=== PATIENT | male | born 1960 | race Caucasian/White ===

== ENCOUNTER 2019-12-12 11:55 | Outpatient (CLI) | payer OTHER ==
[2019-12-12 18:12] LABS: BILIRUBIN,URINE NEGATIVE (NEGATIVE); GLUCOSE, URINE (UA) NEGATIVE (NEGATIVE); KETONES,URINE (UA) NEGATIVE (NEGATIVE); LEUKOCYTE ESTERASE, URINE NEGATIVE (NEGATIVE); NITRITE,URINE NEGATIVE (NEGATIVE); OCCULT BLOOD,URINE NEGATIVE (NEGATIVE); PH,URINE 5.5 PH (5.0-7.5); PROTEIN,URINE NEGATIVE (NEGATIVE); UROBILINOGEN,URINE 0.2 (NORMAL) E.U./dL (NORMAL)
[2019-12-12 18:14] LABS: BASOPHILS # (AUTO) 0.1 10^3/uL (0.0-0.1); BASOPHILS % (AUTO) 1.1 %; EOSINOPHILS # (AUTO) 0.1 10^3/uL (0.0-0.7); EOSINOPHILS % (AUTO) 2.2 %; HGB - HEMOGLOBIN 14.8 g/dL (14.0-18.0); LYMPHOCYTES # (AUTO) 1.8 10^3/uL (1.5-3.5); LYMPHOCYTES % (AUTO) 32.1 %; MEAN CORPUSCULAR HEMOGLOBIN 30.5 pg (27.0-31.0); MEAN CORPUSCULAR HGB CONC 32.2 g/dL (32.0-36.0); MEAN CORPUSCULAR VOLUME 94.8 fL (80.0-94.0); MONOCYTES # (AUTO) 0.4 10^3/uL (0.0-1.0); MONOCYTES % (AUTO) 7.4 %; NEUTROPHILS # (AUTO) 3.2 10^3/uL (1.5-6.6); NEUTROPHILS % (AUTO) 56.7 %; PLT - PLATELET COUNT 209 10^3/uL (130-450); RED BLOOD COUNT 4.85 10^6/uL (4.70-6.10); RED CELL DISTRIBUTION WIDTH 13.2 % (12.0-15.0); WHITE BLOOD COUNT 5.6 x10^3/uL (4.8-10.8)
[2019-12-12 18:21] LABS: ALBUMIN 4.1 g/dL (3.2-5.5); ALBUMIN/GLOBULIN RATIO 1.4 (1.0-2.2); ALKALINE PHOSPHATASE 51 IU/L (42-121); ALT ALANINE AMINOTRANSFERASE 17 IU/L (10-60); AST ASPARTATE AMINOTRANSFERASE 17 IU/L (10-42); BUN - BLOOD UREA NITROGEN 16 mg/dL (6-20); CALCIUM 9.1 mg/dL (8.5-10.3); CARBON DIOXIDE - CO2 28 mmol/L (21-32); CHLORIDE 101 mmol/L (101-111); CHOLESTEROL 284 mg/dL; CREATININE 0.9 mg/dL (0.6-1.2); GLUCOSE 90 mg/dL (70-100); HDL CHOLESTEROL 71 mg/dL; LDL CHOLESTEROL,CALCULATED 187 mg/dL; LDL/HDL RATIO 2.6 (<3.6); SODIUM 138 mmol/L (135-145); TOTAL PROTEIN 7.1 g/dL (6.7-8.2); VLDL CHOLESTEROL 26 mg/dL
[2019-12-12 18:29] LABS: CLARITY,URINE CLEAR (CLEAR)
== END 2019-12-12 23:59 | disposition home or self-care (01) ==
LOC: LAB.WCP 11:55
PROVIDERS: ATTEND Family Medicine
DX: Z00.00 Encounter for general adult medical examination without abnormal findings (principal); Z12.5 Encounter for screening for malignant neoplasm of prostate
CPT/HCPCS: 36415; 80053; 80061; 81001; 81003; 83721; 84153; 84443; 85025; 87086

== ENCOUNTER 2020-01-22 09:12 | Day surgery (SDC) | payer OTHER ==
[2020-01-22] MEDS ORDERED: LACTATED RINGERS 1,000 ML IV ONE (10:07)
[2020-01-22] MEDS ORDERED: MIDAZOLAM 2 MG/2 ML VIAL IVP ONE (11:15)
[2020-01-22] MEDS ORDERED: fentaNYL 250 MCG/5 ML VIAL IVP ONE (11:15)
--- NOTE | 2020-01-22 12:14 | OPERATIVE REPORT ---
Operative Report - General Procedure Date: 01/22/20 Planned Procedure: Colonoscopy with possible biopsy or polypectomy Pre-Op Diagnosis: screening for colorectal cancer Procedure Performed: Colonoscopy with snare polypectomy x 1 and biospy forceps polypectomies x 4 Post Op Diagnosis: 1. colon polyps x 5; 2. diverticulosis - Procedure Note Primary Surgeon: Tom Prasad MD Anesthesia Provider: nurse sedation Anesthesia Technique: Moderate sedation Pathology: polyps x 5 (one from cecum, 3 from ascending colon, one from rectum) Indications: screening for CRC Findings: 1. 10 mm sessile cecal polyp; 5 mm, 8 mm and 12 mm sessile ascending colon p olyps; 5 mm sessile rectal polyp. 2. moderate left sided diverticulosis. Complications: none - Other Other Information/Narrative: After informed consent and preop H & P pt was taken to the procedure room and sedated and monitored. VS remain stable. Sedation meds including 7 mg versed and 150 mcg of fentanyl; sedation time was 33 minutes. Pt was placed in the left lateral decubitus position. A digital rectal exam was performed and was nl. The Pentax "red" colonoscope was inserted transanally into the rectum and advanced into the cecum without difficulty. Bowel prep was good. Findings were as noted above. the scope was carefully withdrawn and findings confirmed. The cecal polyp and the two largest ascending colon polyps were removed with the hot snare, the remaining polyps were removed with the jumbo cold biopsy forceps. the tissue was sent for pathologic evaluation. The scope was retroflexed in the rectum with nl findings. Bleeding was negligble. The scope was removed and the procedure terminated without apparent complications. Pt tolerated the procedure well. Appropriate f/u instructions were given.
[2020-01-22 12:23] VITALS: BP 116/100
== END 2020-01-22 09:13 | disposition home or self-care (01) ==
LOC: SDS 09:12
PROVIDERS: ATTEND Internal Medicine Gastroenterology
PROC: 0DBP8ZX Excision of Rectum, Via Natural or Artificial Opening Endoscopic, Diagnostic (ICD-10-PCS; 2020-01-22)
PROC: 0DBH8ZX Excision of Cecum, Via Natural or Artificial Opening Endoscopic, Diagnostic (ICD-10-PCS; 2020-01-22)
PROC: 0DBK8ZX Excision of Ascending Colon, Via Natural or Artificial Opening Endoscopic, Diagnostic (ICD-10-PCS; principal; 2020-01-22 10:30)
DX: Z12.11 Encounter for screening for malignant neoplasm of colon (principal); D12.0 Benign neoplasm of cecum; D12.2 Benign neoplasm of ascending colon; K62.1 Rectal polyp; K57.30 Diverticulosis of large intestine without perforation or abscess without bleeding
CPT/HCPCS: 45380; 45385; J3010; J7120